=== PATIENT | male | born 1980 | race Caucasian/White ===

== ENCOUNTER 2019-03-28 23:34 | Emergency (ER) | payer SELFPAY ==
[~2019-03-28] VITALS: Ht 175 cm; Wt 80.0 kg
[~2019-03-28 23:34] MED LIST: AUGMENTIN875TAB OR; BACTRIM DS1 TAB OR; BACTRIM DS1 TAB PO; BACTROBAN2 % EX; CEPHALEXIN500 MG OR; LORTAB 5 OR; LORTAB 5-325 MG1 TAB PO; LORTAB 7.5 OR; NO CURRENT MEDS; TRAMADOL HCL50 MG PO
[2019-03-29 00:07] VITALS: BP 162/88
== END 2019-03-29 00:21 | disposition home or self-care (01) | DRG 603 ==
LOC: ED 23:34
PROC: 0H98XZZ Drainage of Buttock Skin, External Approach (ICD-10-PCS; principal; 2019-03-28)
DX: L05.01 Pilonidal cyst with abscess (principal); I10 Essential (primary) hypertension; F17.210 Nicotine dependence, cigarettes, uncomplicated